=== PATIENT | female | born 1975 | race Caucasian/White ===

== ENCOUNTER 2017-12-04 20:39 | Emergency (ER) | payer OTHER ==
[~2017-12-04] VITALS: Ht 157.5 cm; Wt 122.5 kg
[~2017-12-04 20:39] MED LIST: AMITRIPTYLINE H25 M2 PO; HYDROCHLOROTHIA25 M2 PO; LEXAPRO20 MG PO; LISINOPRIL20 MG PO; NORCO 5-325 TA1 EACH PO
[2017-12-04 22:01] LABS: INFLUENZA A ANTIGEN None Detected (None Detect); INFLUENZA B ANTIGEN None Detected (None Detect)
[2017-12-04] MEDS ORDERED: PREDNISONE 10 M10 M1 PO (22:04)
[2017-12-04] MEDS ORDERED: ZPAK PO (22:04)
[2017-12-04] MEDS ORDERED: ULTRAM 50MG TAB50 MG PO (22:04)
[2017-12-04] MEDS ORDERED: BENZONATATE200 MG PO (22:04)
[2017-12-04 22:11] VITALS: BP 119/76
== END 2017-12-04 22:14 | disposition home or self-care (01) ==
LOC: M.ERS 20:39
PROVIDERS: Nurse Practitioner
DX: J40 Bronchitis, not specified as acute or chronic (principal); J06.9 Acute upper respiratory infection, unspecified; F43.10 Post-traumatic stress disorder, unspecified; I10 Essential (primary) hypertension; F17.200 Nicotine dependence, unspecified, uncomplicated; Z90.49 Acquired absence of other specified parts of digestive tract; Z88.1 Allergy status to other antibiotic agents; Z88.6 Allergy status to analgesic agent

== ENCOUNTER 2018-10-03 15:23 | Inpatient (IN) | payer OTHER ==
[~2018-10-03] VITALS: Ht 160 cm; Wt 126.9 kg
[~2018-10-03 15:23] MED LIST changes: -AMITRIPTYLINE H25 M2 PO; +AMITRIPTYLINE100 MG PO; +BENZONATATE200 MG PO; +PREDNISONE 10 M10 M1 PO; +ULTRAM 50MG TAB50 MG PO; +ZPAK PO
[2018-10-03 15:35] VITALS: BP 130/68
[2018-10-03] MEDS ORDERED: ROBAXIN 750 MG750 M1 PO (15:46)
[2018-10-03 16:29] LABS: MCV 90.5 fL (80.0-100.0); WBC 11.2 thou/uL (4.0-11.0)
[2018-10-03 16:30] LABS: HEMATOCRIT 29.4 % (37.0-47.0); HEMOGLOBIN 9.8 gm/dL (12.0-15.0); MCH 30.2 pg (26.0-34.0); MCHC 33.4 g/dL (28.0-37.0); MPV 7.3 fl. (7.2-11.1); NUCLEATED RBCS 0 /100WBC; PLATELET COUNT* 219 thou/uL (150-400); RBC 3.25 mil/uL (4.20-5.00); RDW-CV 17.5 % (10.5-14.5)
[2018-10-03 16:33] LABS: BE -2.5 mmol/L (-2 to +3); HCO3 21.9 mmol/L (22.0-26.0); PCO2 36.3 mmHg (35.0-45.0); PO2 82.2 mmHg (75.0-100.0); pH 7.399 (7.340-7.450)
[2018-10-03 16:46] LABS: ANION GAP 8 mmol/L (7-16); BUN 10 mg/dL (7-18); CALCIUM 8.2 mg/dL (8.5-10.1); CHLORIDE 102 mmol/L (98-107); CO2 27 mmol/L (21-32); CREATININE 0.8 mg/dL (0.6-1.3); GLUCOSE 126 mg/dL (70-99); POTASSIUM 3.9 mmol/L (3.5-5.1); SODIUM 137 mmol/L (136-145)
[2018-10-03 16:55] LABS: ALBUMIN 2.9 g/dL (3.4-5.0); ALKALINE PHOSPHATASE 138 U/L (46-116); NT-PRO BRAIN NAT PEPTIDE 540 pg/mL (<300); SGOT 37 U/L (15-37); SGPT 50 U/L (30-65); TOTAL BILIRUBIN 0.4 mg/dL (<0.1-1.0); TOTAL PROTEIN 6.4 g/dL (6.4-8.2); TROPONIN-I LEVEL <0.06 ng/mL (<0.06)
[2018-10-03 16:58] LABS: ABSOLUTE EOSINOPHILS 0.1 thou/uL (0.0-0.7); ABSOLUTE LYMPHOCYTES 0.9 thou/uL (0.8-5.3); ABSOLUTE MONOCYTES 0.2 thou/uL (0.0-1.2); PLATELET ESTIMATE ADEQUATE
--- NOTE | 2018-10-03 18:58 | NUR ---
TOOK OVER PT CARE FROM FLAVIO MAGALLANES RN. PT UP AND ABLE TO AMBULATE TO BATHROOM WITH NO DIFFICULTY.
[2018-10-03 20:20] VITALS: BP 122/57
[2018-10-03 20:30] VITALS: BP 96/63
--- NOTE | 2018-10-03 20:30 | NUR ---
RECEIVED REPORT FROM ER, ADMITTED TO UNIT. SITTING WITH HOB ELEVATED, O2 ON AT 4L/NC. HAVING A DEEP HARSH COUGH, NON-PROD. LUNG SOUNDS WHEEZY, PT IS A SMOKER. NO EDEMA NOTED. IV FLUIDS INFUSING PER SEPSIS PROTOCOL. TELEMETRY APPLIED SHOWING SR. SEE ADMISSION ASSESSMENT AND HX. WILL CONT TO MONITOR AND ASSIST NEEDED.
[2018-10-04] VITALS: BP 138/86
[2018-10-04 04:00] VITALS: BP 110/66
--- NOTE | 2018-10-04 06:14 | NUR ---
AWAKE OCC DURING NIGHT. C/O CHRONIC BACK PAIN WITH PO MEDS GIVEN-EFFECTIVE. CONT WITH DEEP HARSH COUGH. O2 ON. UP TO BSC WITH STEADY GAIT, VOIDING WITHOUT DIFFICULTY. HS GOALS OF REST AND SAFETY ACHIEVED. HOURLY ROUNDING OBSERVED.
[2018-10-04 12:00] VITALS: BP 122/71
--- NOTE | 2018-10-04 13:10 | NUR ---
Nutrition: Consult for "weight loss." Pt was spitting into cup during visit. She did not feel well. Admitted for SOB, PNA. Smoker, OBE, HTN, PTSD. Albumin 2.6. Regular diet, lunch tray sitting on table, untouched. On prednisone. She stated she lost 40# previously d/t GB removal, but she has gained it back now. She stated she has "yo-yo'd" her whole life. Current wt: 293#. She had some questions about her BP Rx, to which I referred her to her physician. No other needs at this time. Mild to low risk.
--- NOTE | 2018-10-04 15:32 | EKG ---
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 10/04/18 1532 1636 [id number] Jesus Shi MD, [facility] /EPI
[2018-10-04 16:00] VITALS: BP 124/62
--- NOTE | 2018-10-04 16:05 | NUR ---
Pt is A&O. Resides at home with her aunt and boyfriend. Independent with ADLS, continues to work outside of the home. No DME. No hx of HH or SNF. Goal is home at wi, no needs anticipated. Following.
--- NOTE | 2018-10-04 18:04 | 2DMMODE ---
[place] [address] 2 D/M-MODE ECHOCARDIOGRAM Name: RONALD HODGES ANGLE Room: [address] IN [facility]#: [id number] Admission: 10/03/18 Attend Phys: Tico Marhs, Discharge: Date of : 71 Date of Service: 10/04/18 1804 Report #: [id number] THIS REPORT FOR: //name// APPROVED REPORT Study performed: 10/04/2018 11:43:20 EXAM: Comprehensive 2D, Doppler, and color-flow Echocardiogram Patient Location: In-Patient Room #: 210 Status: routine BSA: 2.20 HR: 70 bpm BP: 110/66 mmHg Rhythm: NSR Other Information Study Quality: Good Indications Pulmonary Hypertension 2D Dimensions IVSd: 9.21 (7-11mm) LVOT Diam: 19.78 (18-24mm) LVDd: 48.26 mm PWd: 9.21 (7-11mm) Ascending Ao: 25.57 (22-36mm) LVDs: 27.76 (25-40mm) Aortic Root: 26.73 mm Volumes Left Atrial Volume (Systole) LA ESV Index: 32.50 mL/m2 Aortic Valve AoV Peak Alhaji.: 2.01 m/s AO Peak Gr.: 16.23 mmHg LVOT Max P.02 mmHg AO Mean Gr.: 8.75 mmHg LVOT Mean P.46 mmHg LVOT Max V: 1.80 m/s AO V2 VTI: 41.43 cm LVOT Mean V: 1.17 m/s JANET (VTI): 2.84 cm2 LVOT V1 VTI: 38.33 cm Mitral Valve E/A Ratio: 1.62 MV Decel. Time: 252.78 ms MV E Max Alhaji.: 1.57 m/[place] [address] 2 D/M-MODE ECHOCARDIOGRAM Name: CARROLLRONALD DAILEY Room: [address] IN .R.#: [id number] Admission: 10/03/18 Attend Phys: Tico Marsh, Discharge: Date of : 71 Date of Service: 10/04/18 1804 Report #: [id number] PHT: 73.31 ms MVA (PHT): 3.00 cm2 TDI E/Lateral E': 12.08 E/Medial E': 12.08 Medial E' Alhaji.: 0.13 m/s Lateral E' Alhaji.: 0.13 m/s Pulmonary Valve PV Peak Alhaji.: 1.01 m/s PV Peak Gr.: 4.07 mmHg Tricuspid Valve RAP Estimate: 5.00 mmHg TR Peak Gr.: 31.52 mmHg RVSP: 36.00 mmHg PA Pressure: 36.00 mmHg Left Ventricle The left ventricle is normal size. There is normal LV segmental wall motion. There is normal left ventricular wall thickness. Left ventricular systolic function is normal. LVEF is 60-65%. The left ventricular diastolic function is normal. Right Ventricle The right ventricle is normal size. The right ventricular systolic function is normal. Atria Left atrium is mildly dilated. The right atrium size is normal. Aortic Valve The aortic valve is normal in structure. No aortic regurgitation is present. There is no aortic valvular stenosis. Mitral Valve The mitral valve is normal in structure. Trace mitral regurgitation. No evidence of mitral valve stenosis. Tricuspid Valve The tricuspid valve is normal in structure. Mild tricuspid regurgitation. The RVSP is 35-40 mmHg. Pulmonic Valve The pulmonary valve is normal in structure. There is no pulmonic valvular [place] [address] 2 D/M-MODE ECHOCARDIOGRAM Name: RONALD HODGES ANGLE Room: [address] IN [facility]#: [id number] Admission: 10/03/18 Attend Phys: Tico Marsh, Discharge: Date of : 71 Date of Service: 10/04/18 1804 Report #: [id number] Great Vessels The aortic root is normal in size. IVC is normal in size and collapses >50% with inspiration. Pericardium There is no pericardial effusion. <Conclusion> The left ventricle is normal size. There is normal left ventricular wall thickness. Left ventricular systolic function is normal. LVEF is 60-65%. The left ventricular diastolic function is normal. Left atrium is mildly dilated. Trace mitral regurgitation. Mild tricuspid regurgitation. The RVSP is 35-40 mmHg. IVC is normal in size and collapses >50% with inspiration. <ELECTRONICALLY SIGNED> By: Roni Delgado MD, FACC 10/04/181803 03 03 Roni Delgado MD, FACC /INF
--- NOTE | 2018-10-04 19:04 | NUR ---
PATINET RESTING IN BED. UP AD LEISA IN ROOM. 2L PER NASAL CANULA. PAIN MANAGEMENT IS CRITICAL FOR HER. HOURLY ROUNDING COMPLETD FOR PATINET SAFETY
[2018-10-04 20:00] VITALS: BP 145/80
--- NOTE | 2018-10-04 20:00 | NUR ---
RECEIVED REPORT AND ASSUMED CARE OF PT, ASSESSMENT COMPLETED. PT SITTING UP IN BED, O2 ON AT 3L/NC. SOB WITH ANY ACTIVITY OR TALKING. HAVING OCC DEEP HARSH COUGH, NON PROD. TELEMTRY ON SHOWING SR. WILL CONT TO MONITOR AND ASSIST NEEDED.
--- NOTE | 2018-10-04 23:00 | NUR ---
PERPHERIAL AND SL BOTH INFILTRATED. RESTARTED INTO LT FOREARM. PT WENT TO BR WITHOUT O2. BECAME VERY DYSPNEIC WITH DIFFICULTY IN RECOVERY. INFORMED PT NOT TO GO INTO BR WITHOUT O2 AND TO ONLY USE BSC. PT AGREED BUT NON COMPLIANT. PO PAIN MED GIVEN FOR CHRONIC BACK PAIN.
[2018-10-05] VITALS: BP 125/65
[2018-10-05 04:00] VITALS: BP 135/63
--- NOTE | 2018-10-05 06:07 | NUR ---
AWAKE FREQ TONIGHT. MORE IRRITABLE TONIGHT. C/O INCREASING BACK PAIN, PO MED GIVEN AND EFFECTIVE. VERY SOB WITH ANY ACTIVITY. O2 ON AT 3L/NC. NO CHANGE IN ASSESSMENT. TELEMETRY CONT TO SHOW SR. HS GOALS OF REST AND SAFETY ACHIEVED. HOURLY ROUNDING OBSERVED.
[2018-10-05 16:11] VITALS: BP 124/67
[2018-10-05 20:00] VITALS: BP 142/77
[2018-10-06] VITALS: BP 139/82
[2018-10-06 04:00] VITALS: BP 114/53
[2018-10-06 05:30] LABS: HEMATOCRIT 26.9 % (37.0-47.0); HEMOGLOBIN 8.9 gm/dL (12.0-15.0); MCH 30.2 pg (26.0-34.0); MCHC 33.2 g/dL (28.0-37.0); MPV 7.6 fl. (7.2-11.1); RBC 2.95 mil/uL (4.20-5.00); RDW-CV 17.7 % (10.5-14.5); WBC 11.1 thou/uL (4.0-11.0)
--- NOTE | 2018-10-06 05:55 | NUR ---
ASSUMED CARE APPROX 2200, I AGREE WITH PREVIOUS NURSE ASSESSMENT. SEE MAR. SEE CHARTING. HOURLY ROUNDING FOR SAFETY.
[2018-10-06 06:23] LABS: CALCIUM 8.5 mg/dL (8.5-10.1); CREATININE 0.8 mg/dL (0.6-1.3); MAGNESIUM 2.1 mg/dL (1.8-2.4); POTASSIUM 3.6 mmol/L (3.5-5.1)
[2018-10-06 09:00] VITALS: BP 116/69
--- NOTE | 2018-10-06 10:35 | NUR ---
PT SOB AFTER WALKING BACK FROM BATHROOM, STATES SHE FEELS VERY WEAK AND DOES NOT FEEL WELL ENOUGH TO GO HOME YET. SHE STATES SHE HAS STAIRS AND SHE DOESN'T FEEL LIKE SHE IS GOING TO BE ABLE TO DO THEM
[2018-10-06 11:49] VITALS: BP 111/56
[2018-10-06 16:37] VITALS: BP 120/70
[2018-10-07] VITALS: BP 98/44
[2018-10-07 03:46] VITALS: BP 150/78
[2018-10-07 04:51] LABS: HEMATOCRIT 29.3 % (37.0-47.0); HEMOGLOBIN 9.9 gm/dL (12.0-15.0); MCH 30.1 pg (26.0-34.0); MCHC 33.8 g/dL (28.0-37.0); MCV 89.1 fL (80.0-100.0); MPV 7.5 fl. (7.2-11.1); RBC 3.29 mil/uL (4.20-5.00); RDW-CV 16.8 % (10.5-14.5); WBC 10.2 thou/uL (4.0-11.0)
--- NOTE | 2018-10-07 06:09 | NUR ---
VITALS WNL. SEE MAR. SEE CHARTING. HOURLY ROUNDING FOR SAFETY.
[2018-10-07 08:04] VITALS: BP 115/54
[2018-10-07] MEDS ORDERED: PERCOCET 10-321 EACH PO (09:00)
[2018-10-07 11:57] VITALS: BP 116/69
[2018-10-07 15:22] VITALS: BP 108/51
--- NOTE | 2018-10-07 18:22 | NUR ---
PT PAIN CONSISTENTLY RATED 8-9/10 IN BACK. PAIN MED GIVEN ORDERED. PT HOME MED REC UPDATED. PT WALKING IN HALLWAYS, MINIMAL SOA. 3L O2 NC, SAT MID 90S. PT ABLE TO MAKE NEEDS KNOWN, CALL LIGHT IN REACH.
[2018-10-07 19:45] VITALS: BP 111/72
[2018-10-08] VITALS: BP 114/54
--- NOTE | 2018-10-08 02:59 | NUR ---
RECEIVED REPORT AND ASSUMED CARE AT 1900. VSS. CARDIAC MONITORING IN PLACE. PT REPORTED BACK PAIN, PRN MEDICATION ADMIN PER ORDERS. ASSESSMENT COMPLETED CHARTED. PT UP AD LEISA IN ROOM, ON 3L NC. DISCUSSED PLAN OF CARE WITH PT, VERBALIZED UNDERSTANDING. BED LOCKED IN LOWEST POSITION, CALL LIGHT WITHIN REACH. WILL CONTINUE TO MONITOR
[2018-10-08 04:00] VITALS: BP 128/71
[2018-10-08 07:56] VITALS: BP 129/57
[2018-10-08] MEDS ORDERED: PREDNISONE 10 M10 MG PO (10:27)
[2018-10-08] MEDS ORDERED: VENTOLIN HFA 1818 GM INH (10:27)
[2018-10-08] MEDS ORDERED: BENZONATATE100 MG PO (10:27)
[2018-10-08] MEDS ORDERED: AZITHROMYCIN 2250 MG PO (10:27)
[2018-10-08] MEDS ORDERED: CEFUROXIME500 MG PO (10:27)
[2018-10-08 11:26] VITALS: BP 129/57
--- NOTE | 2018-10-08 14:02 | NUR ---
DC HOME WITH ALL BELONGINGS. PT UP WALKING IN HALLWAY, MINIMAL SOA. PT C/O CHRONIC BACK PAIN, MANAGED WITH PAIN MEDS. IV REMOVED INTACT BEFORE DC. PT ACKNOWLEDGED DC INSTRUCTIONS AND MEDICATIONS.
== END 2018-10-08 13:50 | disposition home or self-care (01) | DRG 193 ==
LOC: M.ERS 15:23 → M.2W 17:54 → M.TBA-ER 17:54 → M.2W 21:21
PROVIDERS: Internal Medicine; Physician Assistant
DX: J15.9 Unspecified bacterial pneumonia (principal); J96.01 Acute respiratory failure with hypoxia; Z68.42 Body mass index [BMI] 45.0-49.9, adult; R65.10 Systemic inflammatory response syndrome (SIRS) of non-infectious origin without acute organ dysfunction; F43.10 Post-traumatic stress disorder, unspecified; I10 Essential (primary) hypertension; F41.9 Anxiety disorder, unspecified; F32.9 Major depressive disorder, single episode, unspecified; E66.01 Morbid (severe) obesity due to excess calories; F17.210 Nicotine dependence, cigarettes, uncomplicated; Z90.49 Acquired absence of other specified parts of digestive tract; Z98.891 History of uterine scar from previous surgery; Z79.899 Other long term (current) drug therapy; Z88.1 Allergy status to other antibiotic agents; Z88.8 Allergy status to other drugs, medicaments and biological substances

== ENCOUNTER 2019-07-04 14:41 | Emergency (ER) | payer OTHER ==
[~2019-07-04] VITALS: Ht 160 cm; Wt 127.0 kg
[~2019-07-04 14:41] MED LIST changes: +AZITHROMYCIN 2250 MG PO; +BENZONATATE100 MG PO; +CEFUROXIME500 MG PO; +PERCOCET 10-321 EACH PO; +PREDNISONE 10 M10 MG PO; +ROBAXIN 750 MG750 M1 PO; +VENTOLIN HFA 1818 GM INH
[2019-07-04 14:46] VITALS: BP 147/95
[2019-07-04] MEDS ORDERED: LEXAPRO20 MG PO (14:49)
[2019-07-04] MEDS ORDERED: CIPROFLOXIN HC2.5 M1 OPHTHALMIC (15:00)
[2019-07-04] MEDS ORDERED: KEFLEX500 M1 PO (15:00)
== END 2019-07-04 15:11 | disposition home or self-care (01) ==
LOC: M.ERS 14:41
DX: H00.022 Hordeolum internum right lower eyelid (principal); I10 Essential (primary) hypertension; F41.9 Anxiety disorder, unspecified; F32.9 Major depressive disorder, single episode, unspecified; E66.01 Morbid (severe) obesity due to excess calories; Z68.42 Body mass index [BMI] 45.0-49.9, adult; Z88.1 Allergy status to other antibiotic agents; Z90.49 Acquired absence of other specified parts of digestive tract; Z88.6 Allergy status to analgesic agent; Z88.8 Allergy status to other drugs, medicaments and biological substances

== ENCOUNTER 2021-01-19 17:24 | Emergency (ER) | payer MEDICAID ==
[~2021-01-19] VITALS: Ht 160 cm; Wt 122.5 kg
[~2021-01-19 17:24] MED LIST changes: +CIPROFLOXIN HC2.5 M1 OPHTHALMIC; +KEFLEX500 M1 PO
[2021-01-19] MEDS ORDERED: XANAX1 MG (17:45)
[2021-01-19 18:41] LABS: CALCIUM 8.9 mg/dL (8.5-10.1); CREATININE 0.8 mg/dL (0.6-1.3); POTASSIUM 3.5 mmol/L (3.5-5.1)
[2021-01-19 18:54] LABS: ALBUMIN 3.4 g/dL (3.4-5.0); TOTAL BILIRUBIN 1.2 mg/dL (<0.1-1.0); TOTAL PROTEIN 7.4 g/dL (6.4-8.2)
[2021-01-19 19:06] LABS: ABSOLUTE EOSINOPHILS 0.1 thou/uL (0.0-0.7); ABSOLUTE LYMPHOCYTES 0.8 thou/uL (0.8-5.3); ABSOLUTE MONOCYTES 0.4 thou/uL (0.0-1.2); ABSOLUTE NEUTROPHILS 4.2 thou/uL (1.6-8.1); BASOPHILS 0.5 %; HEMATOCRIT 42.7 % (37.0-47.0); HEMOGLOBIN 14.1 gm/dL (12.0-15.0); LYMPHOCYTES 14.5 %; MCH 28.8 pg (26.0-34.0); MCHC 33.1 g/dL (28.0-37.0); MONOCYTES 7.7 %; NUCLEATED RBCS 0 /100WBC; PLATELET COUNT* 251 thou/uL (150-400); POLYS 75.3 %; RDW-CV 15.2 % (10.5-14.5); WBC 5.6 thou/uL (4.0-11.0)
[2021-01-19] MEDS ORDERED: PROMETHAZINE-P118 M1 PO (19:45)
[2021-01-19] MEDS ORDERED: VENTOLIN HFA 1818 GM INH (19:45)
[2021-01-19] MEDS ORDERED: MEDROLDOSEPACK PO (19:45)
[2021-01-19] MEDS ORDERED: DOXYCYCLINE 10100 MG PO (19:45)
[2021-01-19 20:20] VITALS: BP 141/64
--- NOTE | 2021-01-21 15:19 | EKG ---
[place] [address] ELECTROCARDIOGRAM REPORT Name: RONALD [facility]ODGES [id number] Admission: 01/19/21 Attend Phys: Discharge: 01/19/21 Date of : 71 Date of Service: 01/19/211831 Report #: [id number] THIS REPORT FOR: //name// [facility] ED Test Date: 2021-01-19 Test Time: 18:32:50 Pat Name: RONALD HODGES Department: Room: Gender: F Dairy Department Manager: [facility] : 1975 Requested By: Heather Monroy Order Number: [id number] MD: Dewayne Tadeo Measurements Intervals [place] Rate: 76 P: 51 LA: 156 QRS: 9 QRSD: 90 T: 44 QT: 408 QTc: 459 Interpretive Statements Sinus rhythm Compared to ECG 10/03/2018 16:36:23 No significant changes Electronically Signed On 01-21-2021 15:19:28 CDT by Dewayne Tadeo [email or web address] <ELECTRONICALLY SIGNED> By: Dewayne Tadeo MD, [facility] 01/21/21 1519 31 31 Dewayne Tadeo MD, [facility] /EPI
== END 2021-01-19 20:20 | disposition home or self-care (01) ==
LOC: M.ERS 17:24
PROVIDERS: Nurse Practitioner Family
DX: J18.9 Pneumonia, unspecified organism (principal); Z20.822 Contact with and (suspected) exposure to COVID-19; R42 Dizziness and giddiness; I10 Essential (primary) hypertension; E66.01 Morbid (severe) obesity due to excess calories; Z68.42 Body mass index [BMI] 45.0-49.9, adult; Z88.1 Allergy status to other antibiotic agents; Z88.8 Allergy status to other drugs, medicaments and biological substances; Z90.49 Acquired absence of other specified parts of digestive tract

== ENCOUNTER 2021-02-20 15:49 | Emergency (ER) | payer MEDICAID ==
[~2021-02-20] VITALS: Ht 160 cm; Wt 122.5 kg
[~2021-02-20 15:49] MED LIST changes: +DOXYCYCLINE 10100 MG PO; +MEDROLDOSEPACK PO; +PROMETHAZINE-P118 M1 PO; +XANAX1 MG
[2021-02-20 16:20] LABS: URINE BILIRUBIN NEGATIVE (Negative); URINE BLOOD NEGATIVE (Negative); URINE CLARITY CLEAR; URINE COLOR YELLOW; URINE GLUCOSE-RANDOM NEGATIVE (Negative); URINE KETONES NEGATIVE (Negative); URINE LEUKOCYTES-REFLEX NEGATIVE (Negative); URINE NITRITE-REFLEX NEGATIVE (Negative); URINE PROTEIN NEGATIVE (Negative); URINE SPECIFIC GRAVITY 1.015 (1.005-1.030)
[2021-02-20 16:42] LABS: ABSOLUTE EOSINOPHILS 0.1 thou/uL (0.0-0.7); ABSOLUTE LYMPHOCYTES 1.8 thou/uL (0.8-5.3); ABSOLUTE MONOCYTES 0.4 thou/uL (0.0-1.2); ABSOLUTE NEUTROPHILS 3.7 thou/uL (1.6-8.1); BASOPHILS 0.4 %; EOSINOPHILS 1.6 %; HEMATOCRIT 28.7 % (37.0-47.0); HEMOGLOBIN 9.8 gm/dL (12.0-15.0); LYMPHOCYTES 30.4 %; MCH 30.1 pg (26.0-34.0); MCHC 34.2 g/dL (28.0-37.0); MONOCYTES 6.8 %; MPV 7.3 fl. (7.2-11.1); NUCLEATED RBCS 0 /100WBC; PLATELET COUNT* 274 thou/uL (150-400); POLYS 60.8 %; RBC 3.26 mil/uL (4.20-5.00); RDW-CV 15.7 % (10.5-14.5)
[2021-02-20 16:48] LABS: CALCIUM 8.1 mg/dL (8.5-10.1); CREATININE 0.7 mg/dL (0.6-1.3); POTASSIUM 3.4 mmol/L (3.5-5.1)
[2021-02-20 16:51] LABS: PROTIME 10.6 Seconds (9.20-11.50)
[2021-02-20] MEDS ORDERED: ANUSOL-HC25 MG RECTAL (18:28)
[2021-02-20 18:42] VITALS: BP 153/87
== END 2021-02-20 18:44 | disposition home or self-care (01) ==
LOC: M.ERS 15:49
PROVIDERS: Nurse Practitioner Psychiatric/Mental Health
DX: K60.2 Anal fissure, unspecified (principal); K62.5 Hemorrhage of anus and rectum; F41.9 Anxiety disorder, unspecified; F32.9 Major depressive disorder, single episode, unspecified; E66.01 Morbid (severe) obesity due to excess calories; I10 Essential (primary) hypertension; F17.210 Nicotine dependence, cigarettes, uncomplicated; Z90.49 Acquired absence of other specified parts of digestive tract; Z68.42 Body mass index [BMI] 45.0-49.9, adult; Z79.899 Other long term (current) drug therapy; Z88.1 Allergy status to other antibiotic agents; Z88.8 Allergy status to other drugs, medicaments and biological substances; Z88.6 Allergy status to analgesic agent